=== PATIENT | male | born 2000 | race Caucasian/White ===

== ENCOUNTER 2024-06-24 01:47 | Emergency (ER) | payer OTHER ==
[~2024-06-24 01:47] MED LIST: Lorazepam 2 MG/ML VIAL ONE
== END 2024-06-24 02:00 | disposition home or self-care (01) ==
LOC: ERS 01:47
DX: F19.90 Other psychoactive substance use, unspecified, uncomplicated (principal)
CPT/HCPCS: 96374; J2060